=== PATIENT | male | born 1975 | race Caucasian/White ===

== ENCOUNTER 2024-02-09 11:42 | Emergency (ER) | payer MEDICAID ==
[~2024-02-09] VITALS: Ht 188 cm; Wt 90.0 kg
[2024-02-09] MEDS: ONDANSETRON HCL 4 MG/2 ML VIAL IV ONE (12:09)
[2024-02-09] MEDS: SODIUM CHLORIDE 0.9% 1,000 ML IV ONE (12:09)
[2024-02-09] MEDS: FAMOTIDINE (10MG/ML) 2ML VL IV ONE (12:09)
[2024-02-09 12:26] LABS: Basophils # (auto) 0 10 ^3/uL (0-0.2); Basophils % (auto) 0.3 % (0.0-2.0); Eosinophils # (auto) 0.3 10 ^3/uL (0-0.8); Eosinophils % (auto) 3.1 % (0.0-7.0); Hematocrit 44.4 % (41.0-53.0); Hemoglobin 15.7 g/dL (13.5-17.5); Lymphocytes # (auto) 2.7 10 ^3/uL (0.4-5.4); Lymphocytes % (auto) 27.7 % (10.0-50.0); Mean Corpuscular Hemoglobin 33.2 pg (28.0-32.0); Mean Corpuscular Hgb Conc. 35.3 g/dL (32.0-36.0); Mean Corpuscular Volume 94.2 fL (80.0-100.0); Monocytes # (auto) 0.6 10 ^3/uL (0-1.3); Neutrophils # (auto) 6.2 10 ^3/uL (1.6-8.6); Neutrophils % (auto) 62.9 % (37.0-80.0); Platelet Count (auto) 235 10^3/uL (140-450); Red Blood Cells 4.71 10^6/uL (4.5-5.90); Red Cell Distribution Width 13.4 % (11.8-14.3); White Blood Cell 9.8 10^3/uL (4.4-10.8)
[2024-02-09 12:40] LABS: Alanine Aminotransferase 44 U/L (7-40); Alkaline Phosphatase 147 U/L (46-116); Anion Gap 8 (5-15); BUN/Creatinine Ratio 13.7 (10.0-20.0); Blood Urea Nitrogen 17 mg/dL (9-23); Calcium 10.6 mg/dL (8.7-10.4); Carbon Dioxide 25 mmol/L (20-31); Chloride 105 mmol/L (98-107); Glucose 209 mg/dL (74-106); Potassium 4.7 mmol/L (3.5-5.1); Sodium 138 mmol/L (136-145)
[2024-02-09 12:41] LABS: Albumin 4.9 g/dL (3.2-4.8); Aspartate Aminotransferase 21 U/L (13-40); Bilirubin, Total 0.7 mg/dL (0.2-1.0); Total Protein 8.2 g/dL (5.7-8.2)
[2024-02-09 12:42] LABS: Lactic Acid w/Reflex 4.2 mmol/L (0.4-2.0)
[2024-02-09 17:03] VITALS: BP 141/84; PULSE 101; RESP 18; TEMP 98.7; O2SAT 96
== END 2024-02-09 18:59 | disposition left against medical advice (07) ==
LOC: ER 11:42
DX: R55 Syncope and collapse (principal); R61 Generalized hyperhidrosis; E87.20 Acidosis, unspecified; E11.9 Type 2 diabetes mellitus without complications; I10 Essential (primary) hypertension; R06.02 Shortness of breath; Z90.49 Acquired absence of other specified parts of digestive tract
CPT/HCPCS: 36415; 70450; 71045; 80053; 83605; 83880; 84484; 85025; 96361; 96374; 96375; 99285; J2405; J3490; J7030

== ENCOUNTER 2025-01-10 11:17 | Emergency (ER) | payer MEDICAID ==
[~2025-01-10] VITALS: Ht 188 cm; Wt 88.1 kg
--- NOTE | 2025-01-10 12:18 | ED.PDOC ---
Musculoskeletal HPI Comments A 49 YEAR OLD MALE PRESENTS TO THE ED WITH COMPLAINT OF RIGHT ARM NUMBNESS AND PAIN.PATIENT IS A HE HAS BEEN HAVING RIGHT HAND NUMBNESS AND TINGLING SENSATION FOR THE PAST 2 DAYS. 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 PATIENT DENIES FEVER, CHILLS, SHORTNESS OF BREATH, CHEST PAIN, ABDOMINAL PAIN, NAUSEA, VOMITING, HEADACHE, OR OTHER COMPLAINTS. NO OTHER SYMPTOMS OR MODIFYING FACTORS AT THIS TIME. PATIENT IS ALERT, ORIENTED X 4, AND HAS STEADY GAIT. Chief Complaint: Upper Extremity Time Seen by MD: 12:14 Primary Care Provider: UNKNOWN Reviewed Notes: Medications, Allergies Allergies: Coded Allergies: NO KNOWN ALLERGIES (Unverified , 10/09/13) Home Meds Active Scripts Methylprednisolone (Medrol Dosepak) 4 Mg Abundio, 4 MG PO UD, #21 TAB UAD Prov:SUSIE BIRD 01/10/25 Gabapentin (Gabapentin) 300 Mg Cap, 1 CAP PO TID, #30 CAP Prov:SUSIE BIRD 01/10/25 Information Source: Patient Mode of Arrival: Ambulatory Past Medical History PAST MEDICAL HISTORY: DM, HTN Surgical History: Cholecystectomy Family History Family History: Reviewed,noncontributory to illness, No family hx of Cancer, No family hx of DM, No family hx of Heart yuliana, No family hx of HTN, No family hx ofKidney yuliana, No family hx of Liver yuliana, No family hx of Lung yuliana, No family hx of Stroke Social History Smoker: Non-Smoker Alcohol: Denies ETOH Use Drugs: Denies Drug Use Lives In: Home Constitutional: denies: chills, diaphoresis, fatigue, fever, malaise, sweats, weakness, others EENTM: denies: blurred vision, double vision, ear bleeding, ear discharge, ear drainage, ear pain, ear ringing, eye pain, eye redness, hearing loss, mouth pain, mouth swelling, nasal discharge, nose bleeding, nose congestion, nose pain, photophobia, tearing, throat pain, throat swelling, voice changes, others Respiratory: denies: cough, hemoptysis, orthopnea, SOB at rest, shortness of breath, SOB with excertion, stridor, wheezing, others Cardiovascular: denies: chest pain, dizzy spells, diaphoresis, Dyspnea on exertion, edema, irregular heart beat, left arm pain, lightheadedness, palpitations, PND, syncope, others Gastrointestinal: denies: abdomen distended, abdominal pain, blood streaked bowels, constipated, diarrhea, dysphagia, difficulty swallowing, hematemesis, melena, nausea, poor appetite, poor fluid intake, rectal bleeding, rectal pain, vomiting, others Genitourinary: denies: burning, dysuria, flank pain, frequency, hematuria, incontinence, penile discharge, penile sore, pain, testicle pain, testicle swelling, urgency, others Neurological: reports: numbness (RIGHT ARM AND HAND), tingling; denies: dizziness, fainting, headache, left sided numbness, left sided weakness, paresthesia, pre-existing deficit, right sided numbness, right sided weakness, seizure, speech problems, tremors, weakness, others Musculoskeletal: reports: muscle pain, neck pain; denies: back pain, gout, joint pain, joint swelling, muscle stiffness, others Integumetry: denies: bruises, change in color, change in hair/nails, dryness, laceration, lesions, lumps, rash, wounds, others Allergic/Immunocompromised: denies: Difficulty Healing, Frequent Infections, Hives, Itching, others Hematologic/Lymphatic: denies: anemia, blood clots, easy bleeding, easy bruising, swollen glands, others Endocrine: denies: excessive hunger, excessive sweating, excessive thirst, excessive urination, flushing, intolerance to cold, intolerance to heat, unexplained weight gain, unexplained weight loss, others Psychiatric: denies: anxiety, bipolar disorder, depression, hopeless, panic disorder, schizophrenia, sleepless, suicidal, others All Other Systems: Reviewed and Negative Physical Exam General Appearance: No Apparent Distress, Normal HEENT: Normal ENT Inspection, PERRL/EOMI, Pharynx Normal, TMs Normal Neck: Full Range of Motion, Normal Inspection, Supple, Tender Lateral (ON RIGHT SIDE NECK, NO BONY TENDERNESS, SWELLING AND DEFORMITY. ) Respiratory: Chest Non-Tender, Lungs Clear, No Accessory Muscle Use, No Respiratory Distress, Normal Breath Sounds Cardiovascular: No Edema, No JVD, No Murmur, No Gallop, Normal Peripheral Pulses, Regular Rate/Rhythm Breast Exam: Deferred Gastrointestinal: No Organomegaly, Non Tender, No Pulsatile Mass, Normal Bowel Sounds, Soft Genitalia: Deferred Pelvic: Deferred Rectal: Deferred Extremities: No calf tenderness, Normal capillary refill, Normal inspection, Normal range of motion, Non-tender, No pedal edema, Other (NO RIGHT UPPER EXTREMITY REDNESS AND SWELLING, NO DVT SIGNS. ) Musculoskeletal : Apperance: Normal Neurologic: Alert, [employer] II-XII nml as Tested, No Motor Deficits, Normal Affect, Normal Mood, No Sensory Deficits Cerebellar Function: Normal Reflexes: Normal Skin: Dry, Normal Color, Warm Peripheral Pulses: 2+ carotid (R), 2+ carotid (L) Lymphatic: No Adenopathy Was a procedure done? Was a procedure done?: No Differential Diagnosis EXT Differential Diagnosis: Fracture, Strain, Arthritis Other Differential Diagnosis CARPAL TUNNEL SYNDROME LUMBAR RADICULOPATHY X-Ray, Labs, Meds, VS Vital Signs Date Time Temp Pulse Resp B/P (MAP) Pulse Ox O2 Delivery O2 Flow Rate FiO2 01/10/25 12:49 98.0 79 18 128/81 (97) 99 98.0 01/10/25 12:49 79 18 99 Room Air 01/10/25 11:19 98.1 76 18 136/91 97 98.1 [place] [address] Ph: [phone] DIAGNOSTIC IMAGING Diagnostic Imaging Report : [id number] Signed PATIENT: BALWINDER JAMES ACCT: [id number] UNIT: [id number] : 1975 LOC: ER ROOM / BED: / AGE / SEX: 49 / M ADM STATUS: REG ER SERVICE 1210 ORDERING PHYSICIAN: SUSIE BIRD PROCEDURE(s): CERV2 - CERVICAL SPINE 3V REASON: RIGHT HAND NUMBNESS AND TINGLING SENSATION ORDER NUMBER(s): [id number], ACCESSION NUMBER(s): [id number] INDICATION: RIGHT HAND NUMBNESS AND TINGLING SENSATION COMPARISON: None TECHNIQUE: views of the cervical spine were obtained. FINDINGS: The cervical vertebral alignment is normal. The predental space is normal. Degenerative disc disease is seen from C4-C7. No significant facet arthropathy is noted. No acute fracture, vertebral compression deformity or aggressive osseous lesions . The imaged lung apices are unremarkable. IMPRESSION: 1. Degenerative change, no acute disease ATED BY: LILLIE NOBLES MD DICTATED DATE/TIME: 01/10/25 123 SIGNED BY: LILLIE NOBLES MD SIGNED DATE/TIME: 01/10/251238 CC: X-Ray, Labs, Meds, VS Comment COURSE: EXTERNAL MEDICAL RECORDS REVIEWED: [NONE] INDEPENDENT HISTORIANS: [NONE] SOCIAL DETERMINANTS OF HEALTH: [NONE] LABS ORDERED: NONE REVIEWED AND INTERPRETED RESULTS: NONE IMAGING ORDERED: CERVICAL SPINE X-RAY TREATMENTS ORDERED: NO PROCEDURES PERFORMED: NONE CRITICAL CARE TIME: NONE I HAVE DISCUSSED THE PATIENT WITH THE ATTENDING PHYSICIAN, SHE AGREES WITH THE PATIENT'S PLAN OF CARE AND DISPOSITION. BASED ON HISTORY OF PRESENT ILLNESS, AND PHYSICAL EXAM, PATIENT WILL BE DISCHARGED HOME. DISCUSSED PLAN FOR DISCHARGE HOME WITH RX [ GABAPENTIN AND MEDROL DOSE PACK ]. MEDICATION WARNINGS GIVEN. SHARED DECISION MAKING: DISCUSSED WITH PATIENT THAT THEIR WORKUP WAS NORMAL. PATIENT INSTRUCTED TO FOLLOW UP WITH PRIMARY CARE PROVIDER IN 1-2 DAYS FOR RE- EVALUATION OF SYMPTOMS. PATIENT VERBALIZES UNDERSTANDING TO RETURN TO ED FOR NEW OR WORSENING SYMPTOMS OR IF FOLLOW UP WITH PCP CANNOT BE OBTAINED. PATIENT FEELS COMFORTABLE GOING HOME AT THIS TIME. ALL QUESTIONS ADDRESSED AT TIME OF DISCHARGE. Time of 1ST Reevaluation: 12:45 Reevaluation 1ST: Improved Patient Education/Counseling: Diagnosis, Treatment, Need For Follow Up Family Education/Counseling: Diagnosis, Treatment, No Family Present Medical Screening: No EMC Exist At This Time Departure 1 Departure Time of Disposition: 12:46 Impression: Primary Impression: DDD (degenerative disc disease), cervical Additional Impression: Cervical radiculopathy Disposition: 01 HOME / SELF CARE / HOMELESS Condition: Stable Additional Instructions: FOLLOW UP WITH PCP IN THE NEXT 1-2 DAYS. TAKE MEDICATIONS PERSCRIBED. RETURN TO THE ED FOR ANY NEW OR WORSENING SYMPTOMS e-Prescriptions Methylprednisolone (Medrol Dosepak) 4 Mg Abundio 4 MG PO UD, #21 TAB UAD Prov: SUSIE BIRD 01/10/25 Gabapentin (Gabapentin) 300 Mg Cap 1 CAP PO TID, #30 CAP Prov: SUSIE BIRD 01/10/25 Discharged With: Self Critical Care Note Critical Care Time?: No Stability Stability form required: No Heart Score Heart Score: Heart Score Response (Comments) Value History N/A 0 EKG N/A 0 Age N/A 0 Risk Factors N/A 0 Troponin N/A 0 Total 0 I personally scribed for SUSIE BIRD ([email or web address]) on 01/10/25 at 12:18. Electronically submitted by Michael Allen ([employer]). I personally scribed for SUSIE BIRD ([email or web address]) on 01/10/25 at 12:40. Electronically submitted by Michael Allen ([employer]). I personally scribed for SUSIE BIRD ([email or web address]) on 01/10/25 at 12:43. Electronically submitted by Michael Allen ([employer]). SUSIE BIRD Jan 10, 2025 12:18
--- NOTE | 2025-01-10 12:41 | DVH ---
INDICATION: RIGHT HAND NUMBNESS AND TINGLING SENSATION COMPARISON: None TECHNIQUE: views of the cervical spine were obtained. FINDINGS: The cervical vertebral alignment is normal. The predental space is normal. Degenerative disc disease is seen from C4-C7. No significant facet arthropathy is noted. No acute fracture, vertebral compression deformity or aggressive osseous lesions. The imaged lung apices are unremarkable. IMPRESSION: 1. Degenerative change, no acute disease
[2025-01-10] MEDS ORDERED: GABA-1250 PO (12:44)
[2025-01-10] MEDS ORDERED: METH4PAK PO (12:44)
[2025-01-10 12:49] VITALS: BP 128/81; PULSE 79; RESP 18; TEMP 98; O2SAT 99
== END 2025-01-10 12:50 | disposition home or self-care (01) ==
LOC: ER 11:17
DX: M50.31 Other cervical disc degeneration, high cervical region (principal); E11.9 Type 2 diabetes mellitus without complications; I10 Essential (primary) hypertension; Z79.899 Other long term (current) drug therapy; Z90.49 Acquired absence of other specified parts of digestive tract
CPT/HCPCS: 72040